=== PATIENT | male | born 1990 | race Caucasian/White ===

== ENCOUNTER → 2022-10-17 10:38 | Outpatient (REF) | payer OTHER, SELFPAY ==
--- NOTE | 2022-10-17 10:48 | ECG_ITS ---
Test Reason : 251.81 Blood Pressure : / mmHG Vent. Rate : 053 BPM Atrial Rate : 053 BPM P-R Int : 134 ms QRS Dur : 102 ms QT Int : 454 ms P-R-T Axes : 036 -06 046 degrees QTc Int : 426 ms Sinus bradycardia Otherwise normal ECG When compared with ECG of 05-DEC-2018 10:58, No significant change was found Referred By: ARIELLE VIVEROS Electronically Signed By:FEMI HUERTAS
== END ==
LOC: HO.CARD 10:38
PROVIDERS: Visit Provider Nurse Practitioner Psychiatric/Mental Health
DX: Z79.899 Other long term (current) drug therapy (principal)
CPT/HCPCS: 93005